=== PATIENT | female | born 1980 | race Caucasian/White ===

== ENCOUNTER 2018-12-09 18:00 | Outpatient (CLI) | payer OTHER | END 2018-12-09 18:01 | disposition home or self-care (01) | LOC: SLEEPLAB 18:00 | PROVIDERS: ATTEND Family Medicine | DX: G47.33 Obstructive sleep apnea (adult) (pediatric) (principal); G47.9 Sleep disorder, unspecified; R53.83 Other fatigue; R51 Headache; G31.84 Mild cognitive impairment of uncertain or unknown etiology; F41.9 Anxiety disorder, unspecified; R06.83 Snoring | CPT/HCPCS: 95806 ==

== ENCOUNTER 2019-06-16 14:56 | Outpatient (CLI) | payer OTHER | END 2019-06-16 14:57 | disposition home or self-care (01) | LOC: CTENTCT 14:56 | PROVIDERS: ATTEND Otolaryngology Plastic Surgery within the Head & Neck | DX: J34.2 Deviated nasal septum (principal); J30.9 Allergic rhinitis, unspecified | CPT/HCPCS: 70486 ==